=== PATIENT | male | born 1980 | race African-American/Black ===

== ENCOUNTER 2021-08-13 14:20 | Emergency (ER) | payer MEDICAID, OTHER ==
[~2021-08-13] VITALS: Ht 177.8 cm; Wt 68.0 kg
[2021-08-13] MEDS ORDERED: ACETAMINOPHEN 325MG TABLET PO ONE (22:30)
[2021-08-13] MEDS ORDERED: IBUPROFEN 400MG TABLET PO ONE (22:30)
[2021-08-13] MEDS ORDERED: TOPUD PO (22:53)
[2021-08-13] MEDS ORDERED: IBUP-2028 MT (22:53)
[2021-08-13 23:10] VITALS: BP 118/75
== END 2021-08-13 23:13 | disposition home or self-care (01) ==
LOC: ER 14:29
DX: S93.492A Sprain of other ligament of left ankle, initial encounter (principal); Z88.8 Allergy status to other drugs, medicaments and biological substances; X50.1XXA Overexertion from prolonged static or awkward postures, initial encounter; Y93.89 Activity, other specified; Y92.018 Other place in single-family (private) house as the place of occurrence of the external cause
CPT/HCPCS: 73590; 73610; 99284

== ENCOUNTER 2023-10-03 15:14 | Emergency (ER) | payer MEDICAID, OTHER ==
[~2023-10-03] VITALS: Ht 175.3 cm; Wt 75.0 kg
[~2023-10-03 15:14] MED LIST: IBUP-2028 MT; TOPUD PO
[2023-10-03 15:34] VITALS: TEMP 98.1; O2SAT 99
[2023-10-03 16:35] LABS: BASOPHILS % 0.5 % (0.0-2.0); DIFFERENTIAL COMMENT 0; EOSINOPHILS % 0.7 % (0.0-5.0); HEMOGLOBIN. 13.7 g/dL (14.0-18.0); LYMPHOCYTES % 47.5 % (20.0-50.0); MEAN CORPUSCULAR HEMOGLOBIN 32.9 pg (28.0-32.0); MEAN CORPUSCULAR HGB CONC 32.6 g/dL (31.0-37.0); MEAN CORPUSCULAR VOLUME 100.9 fL (80.0-94.0); MEAN PLATELET VOLUME 7.1 fl (7.4-10.4); MONOCYTES % 8.8 % (2.0-8.0); NEUTROPHILS % 42.5 % (40.0-76.0); PLATELET 274 x1000/uL (130-400); RED BLOOD CELL COUNT 4.16 mill/uL (4.7-6.1); RED CELL DISTRIBUTION WIDTH 14.9 % (11.6-14.6)
[2023-10-03 16:48] LABS: CHLORIDE 105 mEq/L (98-107); POTASSIUM 4.2 mEq/L (3.5-5.1); SODIUM 139 mEq/L (136-145)
[2023-10-03 16:49] LABS: CALCIUM 9.6 mg/dL (8.7-10.4); CARBON DIOXIDE 31 mEq/L (21-32)
[2023-10-03 16:54] LABS: CREATININE 0.9 mg/dL (0.6-1.3); GLUCOSE 95 mg/dL (70-105); UREA NITROGEN BLOOD 6 mg/dL (9-23)
[2023-10-03 16:56] LABS: TROPONIN I HIGH SENSITIVITY < 4 ng/L (3.0-53)
[2023-10-03] MEDS ORDERED: IBUP-2029 MT (17:52)
[2023-10-03 18:04] VITALS: BP 125/80; PULSE 82; RESP 16
== END 2023-10-03 18:05 | disposition home or self-care (01) ==
LOC: ER 15:14
DX: S43.402A Unspecified sprain of left shoulder joint, initial encounter (principal); S00.33XA Contusion of nose, initial encounter; R55 Syncope and collapse; Z88.8 Allergy status to other drugs, medicaments and biological substances; X58.XXXA Exposure to other specified factors, initial encounter; Y93.89 Activity, other specified; Y92.89 Other specified places as the place of occurrence of the external cause; Y99.8 Other external cause status
CPT/HCPCS: 36415; 71045; 73030; 80048; 84484; 85025; 93005; 99285